=== PATIENT | male | born 1965 | race Hispanic/Latino ===

== ENCOUNTER 2017-12-26 08:23 | Emergency (ER) | payer BC ==
[2017-12-26 09:09] VITALS: TEMP 98
[2017-12-26 09:10] VITALS: BMI 31.2
[2017-12-26 10:04] VITALS: BP 152/85; PULSE 60; RESP 16; O2SAT 99
--- NOTE | 2017-12-26 10:20 | ED PDOC ---
Arrival/HPI - General Chief Complaint: Chest Pain Time Seen by Provider: 12/26/17 09:07 - History of Present Illness Narrative History of Present Illness (Text): 12/26/17 10:20 52-year-old male with no significant past medical history, reports back pain and chest pain which started 2 days ago. Patient states that the pain starts in the left back and radiates up to his left upper back and at times radiates to the right mid back and to the left chest, states that the pain is intermittent. He states that he recently drove to [place] and was there for 4 days, states they just returned last night. Patient also reports of a left-sided headache wi th numbness to the left side of his face, both hands and both of his feet. Otherwise: (+) lightheaded, (+) generalized weakness, (-) diaphoresis, (-) dyspnea, (-) pleuritic component, (-) ripping or tearing quality, (+) back pain is worse with movement, (-) exertional component, (-) dizziness, (-) syncope, (- ) nausea, (-) vomiting, (-) calf swelling/pain, (-) neuro deficits. PMD does not recall name Past Medical History - Infectious Disease Hx of Infectious Diseases: None - Tetanus Immunization Tetanus Immunization: Unknown - Cardiac Hx Cardiac Disorders: No - Pulmonary Hx Respiratory Disorders: No - Neurological Hx Neurological Disorder: No - HEENT Hx HEENT Disorder: No - Renal Hx Renal Disorder: No - Endocrine/Metabolic Hx Endocrine Disorders: No - Hematological/Oncological Hx Blood Disorders: No - Integumentary Hx Dermatological Disorder: No - Musculoskeletal/Rheumatological Hx Musculoskeletal Disorders: No - Gastrointestinal Hx Gastrointestinal Disorders: No - Genitourinary/Gynecological Hx Genitourinary Disorders: No - Psychiatric Hx Psychophysiologic Disorder: No Hx Substance Use: No - Surgical History Other/Comment: some lesion removal - Anesthesia Hx Anesthesia: Yes Hx Anesthesia Reactions: No Family/Social History Family/Social History: CAD/RI (father of RI 3 weeks ago at age of 75), Neoplasm/Cancer (mother) Smoking Status: Never Smoked Hx Alcohol Use: Yes Frequency of alcohol use: Socially Hx Substance Use: No Allergies/Home Meds Allergies/Adverse Reactions: Allergies acetaminophen Allergy (Verified 12/26/17 09:44) SWELLING oxycodone Allergy (Verified 12/26/17 09:44) SWELLING Review of Systems - Review of Systems Constitutional: Fatigue. absent: Fevers Respiratory: absent: SOB, Cough Cardiovascular: Chest Pain. absent: Palpitations, Edema Gastrointestinal: Abdominal Pain (+feeling of fullness, gas and burping with eating). absent: Diarrhea, Nausea, Vomiting Genitourinary Male: absent: Dysuria, Frequency Musculoskeletal: Back Pain. absent: Arthralgias, Neck Pain, Joint Swelling Skin: absent: Rash, Pruritis, Skin Lesions Neurological: Headache, Dizziness. absent: Focal Weakness, Speech Changes, Facial Droop Physical Exam Vital Signs Temp Pulse Resp BP Pulse Ox 12/26/17 10:03 60 16 152/85 H 99 12/26/17 09:07 98 F 63 64 L 12/26/17 08:24 98 F 63 64 L Temperature: Afebrile Blood Pressure: Hypertensive Pulse: Regular Respiratory Rate: Normal Appearance: Positive for: Well-Appearing, Non-Toxic, Comfortable Pain Distress: None Mental Status: Positive for: Alert and Oriented X 3 - Systems Exam Head: Present: Atraumatic, Normocephalic Pupils: Present: PERRL Extroacular Muscles: Present: EOMI Conjunctiva: Present: Normal Mouth: Present: Moist Mucous Membranes Neck: Present: Normal Range of Motion Respiratory/Chest: Present: Clear to Auscultation, Good Air Exchange. No: Respiratory Distress, Accessory Muscle Use Cardiovascular: Present: Regular Rate and Rhythm, Normal S1, S2. No: Murmurs Abdomen: No: Tenderness, Distention, Peritoneal Signs Back: Present: Normal Inspection. No: CVA Tenderness, Midline Tenderness, Paraspinal Tenderness Upper Extremity: Present: Normal Inspection. No: Cyanosis, Edema Lower Extremity: Present: Normal Inspection, NORMAL PULSES, Neurovascularly Intact. No: Edema, CALF TENDERNESS Neurological: Present: GCS=15, CN II-XII Intact, Speech Normal, Motor Func Grossly Intact, Normal Sensory Function, Memory Normal, Normal 2Pt Descrimination Skin: Present: Warm, Dry, Normal Color. No: Rashes Psychiatric: Present: Alert, Oriented x 3, Normal Insight, Normal Concentration Medical Decision Making ED Course and Treatment: 12/26/17 10:21 Plan: -- Labs -- IV -- Urinalysis -- EKG -- CXR -- Reassess and disposition -- CT head without contrast EKG: NSR at 60 bpm, +LAD, (-) acute ST changes, as read by PA. CXR : NAD, as read by PA CT head : no acute intracranial abnormality. Labs reviewed : d-dimer (-), trop (-), rest of the labs wnl. On reevaluation, patient reports no dizziness, CP or shortness of breath at this time. On exam, patient remains awake alert and oriented 3 in no acute distress. VS at bedside BP 128/69 P 70. Diagnostic results discussed with the patient in great detail. Based on history, exam and diagnostic results plan will be for observation. Patient notified that it is best for him to stay for observation for repeat cardiac enzymes, cardiology and possibly neuro consult for his symptoms. However the patient is refusing to stay in the hospital for observation, states that he would rather see his PMD. Patient refuses observation. Patient informed of the reasons for the following and planned treatment, which patient understands, however still refuses. Patient informed of the risk and benefits of treatment. Informed that the risk could include worsening of current conditions, undiagnosed conditions, disability or even . Patient understands the following risk and the benefits of treatment. Patient has the capacity to make decisions and still refuses treatment by RN, PA and ER MD. Patient encouraged to return to the ER at any time and to follow up with pmd. - RAD Interpretation Radiology Orders: 12/26/17 09:47 CHEST PORTABLE [RAD] Stat 12/26/17 09:48 HEAD W/O CONTRAST [CT] Stat - PA / ENVIRONMENTAL SERVICE AIDE / Resident Statement MD/DO has reviewed & agrees with the documentation as recorded. Disposition/Present on Arrival - Present on Arrival Any Indicators Present on Arrival: No History of DVT/PE: No History of Uncontrolled Diabetes: No Urinary Catheter: No History of Decub. Ulcer: No History Surgical Site Infection Following: None - Disposition Have Diagnosis and Disposition been Completed?: Yes Diagnosis: Chest pain, Back pain Disposition: AGAINST MEDICAL ADVICE Disposition Time: 12:00 Patient Plan: Other (Patient wants to leave AMA.) Patient Problems: Current Active Problems Problem Status Onset Chest pain Acute Back pain Acute Condition: UNKNOWN Discharge Instructions (ExitCare): Upper Back Pain (DC), Leaving Against Medical Advice, Chest Pain (ED) Additional Instructions: Thank you for letting us take care of you today. You are choosing to leave against medical advice. You were treated for chest pain, back pain. The emergency medical care you received today was directed at your acute symptoms. Return to the Emergency Department if your symptoms worsen, do not improve, or if you have any other problems. Please contact your doctor in 2 days for re-evaluation and follow up / or call one of the physicians/clinics you have been referred to that are listed on the Patient Visit Information form that is included in your discharge packet. Bring any paperwork you were given at discharge with you along with any medications you are taking to your follow up visit. Our treatment cannot replace ongoing medical care by a primary care provider (PCP) outside of the emergency department. Thank you for allowing the [facility] team to be part of your care today. If you had an X-Ray or CT scan: A Radiologist will review the ED reading if any change in treatment is needed we will contact you. Referrals: FAMILY PROVIDER,NO [Primary Care Provider] - Follow up with primary Forms: [employer] (Cuban), WORK NOTE
[2017-12-26 10:25] LABS: PH,URINE 6.5 (4.7-8.0); URINE APPEARANCE CLEAR (CLEAR); URINE BILIRUBIN NEGATIVE (NEGATIVE); URINE BLOOD TRACE-LYSED (NEGATIVE); URINE COLOR YELLOW (YELLOW); URINE GLUCOSE (UA) NEGATIVE (NEGATIVE); URINE LEUKOCYTE ESTERASE NEGATIVE Leu/uL (NEGATIVE); URINE PROTEIN NEGATIVE mg/dL (<30 mg/dL); URINE UROBILINOGEN 0.2 E.U./dL (<1 E.U./dL)
[2017-12-26 10:31] LABS: ALB/GLOB RATIO 1.4 (1.1-1.8); ALBUMIN 4.5 g/dL (3.0-4.8); ALT/SGPT 57 U/L (7-56); AST/SGOT 49 U/L (17-59); BLOOD UREA NITROGEN 14 mg/dL (7-21); GFR NON-AFRICAN AMERICAN > 60
[2017-12-26 10:33] LABS: D DIMER < 200 ng/mlDDU (0-243); PARTIAL THROMBOPLASTIN TIME 31.6 Seconds (25.1-36.5)
[2017-12-26 10:35] LABS: URINE BACTERIA FEW (NEG); URINE WBC 0 - 2 /hpf (0-6)
[2017-12-26 10:43] LABS: TROPONIN I < 0.01 ng/mL
--- NOTE | 2017-12-26 11:07 | CT ---
Date of service: 12/26/2017 PROCEDURE: CT HEAD WITHOUT CONTRAST. HISTORY: Headache COMPARISON: None available. TECHNIQUE: Axial computed tomography images were obtained through the head/brain without intravenous contrast. Radiation dose: Total exam DLP = 1001.09 mGy-cm. This CT exam was performed using one or more of the following dose reduction techniques: Automated exposure control, adjustment of the mA and/or kV according to patient size, and/or use of iterative reconstruction technique. FINDINGS: HEMORRHAGE: No intracranial hemorrhage. BRAIN: Arroyo-white matter differentiation is preserved. There is no mass, mass effect or abnormal extra-axial fluid collection. There is no territorial infarction. The midline sagittal structures are normal. VENTRICLES: The ventricles are normal in size, shape and configuration. CALVARIUM: There is no calvarial fracture or extracranial soft tissue swelling. PARANASAL SINUSES: There is a small retention cyst/polyp in the right maxillary sinus. The remaining included paranasal sinuses are clear. MASTOID AIR CELLS: Predominantly clear. OTHER FINDINGS: None. IMPRESSION: No acute intracranial abnormality.
--- NOTE | 2017-12-26 11:11 | RAD ---
Date of service: 12/26/2017 HISTORY: CP COMPARISON: No prior. FINDINGS: LUNGS: No active pulmonary disease. PLEURA: No significant pleural effusion identified, no pneumothorax apparent. CARDIOVASCULAR: No aortic atherosclerotic calcification present. Normal cardiac size. No pulmonary vascular congestion. OSSEOUS STRUCTURES: No significant abnormalities. VISUALIZED UPPER ABDOMEN: Normal. OTHER FINDINGS: None. IMPRESSION: No active disease.
[2017-12-26 12:08] LABS: BASO # 0.01 K/mm3 (0.0-2.0); BASO % 0.2 % (0.0-3.0); EOS # 0.1 (0.0-0.7); EOS % 1.8 % (1.5-5.0); GRAN # 4.42 (1.4-6.5); GRAN % 71.2 % (50.0-68.0); HEMOGLOBIN 16.1 g/dL (14.0-18.0); LYMPH # 1.2 (1.2-3.4); LYMPH % 19.6 % (22.0-35.0); MEAN CELL VOLUME 90.4 fl (80.0-105.0); MEAN CORPUSCULAR HEMOGLOBIN 32.1 pg (25.0-35.0); MEAN CORPUSCULAR HGB CONC 35.5 g/dl (31.0-37.0); MEAN PLATELET VOLUME 10.3 fl (7.0-11.0); MONO # 0.5 (0.1-0.6); MONO % 7.2 % (1.0-6.0); RBC 5.02 10^6/uL (3.5-6.1); RED CELL DISTRIBUTION WIDTH 12.6 % (11.5-14.5); WHITE BLOOD COUNT 6.2 10^3/uL (4.5-11.0)
--- NOTE | 2017-12-26 14:07 | CARD ---
APPROVED REPORT Date of service: 12/26/2017 EKG Measurement Heart [id number] MA 206P-4 [id number] <Conclusion> Normal sinus rhythm with 1st degreee AVB Left axis deviation PRWP STTW changes c/w ischemia
== END 2017-12-26 12:00 | disposition left against medical advice (07) ==
LOC: ED 08:23
DX: R07.9 Chest pain, unspecified (principal); M54.6 Pain in thoracic spine; Z82.49 Family history of ischemic heart disease and other diseases of the circulatory system